=== PATIENT | male | born 1955 | race Caucasian/White ===

== ENCOUNTER 2018-12-23 13:44 | Observation (INO) ==
--- NOTE | 2018-12-23 14:20 | Emergency Department Note ---
Disposition Clinical Impression: Transient cerebral ischemia Qualifiers: Transient cerebral ischemia type: unspecified Qualified Code(s): G45.9 - Transient cerebral ischemic attack, unspecified Disposition: Admitted As Inpatient Condition: Fair Time of Disposition: 16:16 Neuro HPI - General Chief Complaint: ED Neuro Symptoms/Deficit Stated Complaint: Neuro symptoms Time Seen by Provider: 12/23/18 13:56 Source: patient Mode of arrival: ambulatory Limitations: no limitations Nursing Notes Reviewed: Yes Vital Signs Reviewed: Yes - History of Present Illness HPI Narrative: Patient presents to the emergency department with a chief complaint of multiple episodes of right-sided weakness. Onset a couple weeks ago. Patient has been having periods of time the last about an hour where he feels like his tongue is heavy and his right arm is weak. He has to raise on the left arm. He had one earlier today. Family states is also accompanied by "a lisp." At times he saying things that make sense. They state that he is back to normal at this time. He denies any history of stroke or TIA. . - Related Data Home Medications: Home Medications Medication Instructions Recorded Confirmed Cyclobenzaprine [Flexeril] 10 mg PO TID 12/06/15 06/11/18 Furosemide [Lasix] 80 mg PO DAILY 12/06/15 06/11/18 Pravastatin Sodium [Pravachol] 80 mg PO DAILY 12/06/15 06/11/18 diazePAM [Valium] 10 mg PO TID PRN 12/06/15 06/11/18 Omeprazole [PriLOSEC] 40 mg PO DAILY 04/08/16 06/11/18 Potassium Chloride [K-Tab ER] 20 meq PO BID 04/08/16 06/11/18 Previous Rx's Medication Instructions Recorded Docusate [Colace] 100 mg PO BID #60 capsule 04/10/16 OxyCODONE Immed Rel [Roxicodone 5 5 - 10 mg PO Q4HR PRN #60 tablet 07/16/16 MG] OxyCODONE/APAP 5/325 [Percocet 1 - 2 each PO Q4HR PRN #90 tablet 07/16/16 5/325 MG] Aspirin Enteric Coated [Aspirin EC] 325 mg PO BID tablet. 07/17/16 Losartan/HCTZ [Hyzaar 50-12.5 2 each PO DAILY tablet 07/18/16 Tablet] Cefepime HCl/Dextrose, Iso-Osm 2 gm IV Q12H 56 Days mls 07/21/16 [Cefepime 2 gm Injection] Albuterol Neb [Proventil Neb] 2.5 mg IH Q4HR #24 vial.neb 06/11/18 Albuterol Sulfate [Albuterol 2 puff IH QID #1 inhaler 06/11/18 Inhaler] Ipratropium Neb [Atrovent Neb] 0.5 mg IH Q4HR #24 vial.neb 06/11/18 Nebulizer [Aeroeclipse] 1 each MC Q4HR #1 each 06/11/18 Allergies/Adverse Reactions: Allergies Allergy/AdvReac Type Severity Reaction Status Date / Time Iodinated Contrast- Oral and Allergy Anaphylaxis Verified 06/11/18 11:40 IV Dye FRESH OYSTERS Allergy Anaphylaxis Uncoded 06/11/18 11:40 All systems ED: reviewed and negative except as stated. Constitutional: Denies: fever Cardiovascular: Denies: chest pain Respiratory: Denies: dyspnea Gastrointestinal: Denies: abdominal pain Genitourinary: Reports: dysuria. Denies: hematuria Neurological: Reports: weakness, numbness Past Medical History - Past Medical History Attestation: Yes The following information was validated with the patient. Source: patient Medical history: Reports: GERD, hyperlipidemia, hypertension Surgical history: Reports: appendectomy, knee replacement Psychiatric history: Reports: anxiety - Social History Smoking Status: Current every day smoker Smokeless Tobacco Status: No Alcohol use: Reports: unknown Drug use: Reports: unknown Physical Exam - General Limitations: no limitations General appearance: alert, in no apparent distress - Head Head exam: atraumatic, normocephalic - Eye Eye exam: Present: normal appearance, PERRL - ENT ENT exam: normal exam, normal oropharynx - Neck Neck exam: Present: normal inspection - Respiratory Respiratory exam: Present: normal lung sounds bilaterally. Absent: respiratory distress - Cardiovascular Cardiovascular exam: Present: regular rate, normal rhythm, normal heart sounds - Abdominal Exam Abdominal exam: Present: soft, Non-Tender - Neurological Exam Neurological exam: Present: alert - Psychiatric Psychiatric exam: Present: normal affect - Skin Skin exam: Present: warm, dry Course - Consultations Consultation #1: PAtient was accepted by Dr Hill. Vital Signs Temperature 98.7 F 12/23/18 13:52 Pulse Rate 112 12/23/18 13:52 Respiratory Rate 20 12/23/18 13:52 Blood Pressure 130/88 12/23/18 13:52 O2 Sat by Pulse Oximetry 97 12/23/18 13:52 Temperature 98.7 F 12/23/18 14:05 Pulse Rate 97 12/23/18 16:05 Respiratory Rate 18 12/23/18 16:05 Blood Pressure 117/101 12/23/18 16:05 O2 Sat by Pulse Oximetry 97 12/23/18 14:05 Oxygen Delivery Oxygen Delivery Room Air Neuro Symptoms/Deficit - Medical Records Medical records reviewed: Yes I reviewed the patient's medical records. The patient CT is unremarkable. He is having waxing and waning symptoms. His neurologic exam here is unremarkable. Question if he is having TIAs. He will be admitted for further neurologic workup. - Lab Data Result diagrams: 12/23/18 14:33 12/23/18 15:41 Lab Results 12/23/18 12/23/18 12/23/18 Range/Units 14:33 14:33 14:33 WBC 10.8 (4.3-11.1) K/mcL RBC 5.44 (4.19-5.50) M/mcL Hgb 13.5 (12.9-16.9) g/dL Hct 42.1 (37.5-50.1) % MCV 77.4 L (83.0-100.0) fL MCH 24.8 L (28.0-33.3) pg MCHC 32.1 (31.6-35.5) g/dL RDW 17.8 H (11.5-14.5) % Plt Count 267 (140-400) K/mcL MPV 10.4 (9.4-12.4) fL Sodium Cancelled Potassium Cancelled Chloride Cancelled Carbon Dioxide Cancelled BUN Cancelled Creatinine Cancelled Est GFR ( Amer) Cancelled Est GFR (Non-Af Amer) Cancelled BUN/Creatinine Ratio Cancelled Glucose Cancelled Calculated Osmolality Cancelled Calcium Cancelled Troponin I < 0.03 (< 0.04) ng/mL Specimen Rejected Hemolyzed 12/23/18 Range/Units 15:41 WBC (4.3-11.1) K/mcL RBC (4.19-5.50) M/mcL Hgb (12.9-16.9) g/dL Hct (37.5-50.1) % MCV (83.0-100.0) fL MCH (28.0-33.3) pg MCHC (31.6-35.5) g/dL RDW (11.5-14.5) % Plt Count (140-400) K/mcL MPV (9.4-12.4) fL Sodium 138 Potassium 3.7 Chloride 100 Carbon Dioxide 27 BUN 15 Creatinine 1.02 Est GFR ( Amer) > 60 Est GFR (Non-Af Amer) > 60 BUN/Creatinine Ratio 15 Glucose 102 Calculated Osmolality 287 Calcium 9.9 Troponin I (< 0.04) ng/mL Specimen Rejected - Radiology Data Radiology results reviewed: Yes I reviewed the patient's radiology results. Head CT 12/23/18 14:22 IMPRESSION: 1. No acute intracranial abnormality. 2. Mild cerebral atrophy. D/ / Abdifatah Rahman MD / Abdifatah Rahman MD Interpreting Provider: Abdifatah Rahman MD Chest X-Ray 12/23/18 14:23 IMPRESSION: No acute findings. D/ / Tommie Marquis MD / Tommie Marquis MD Interpreting Provider: Tommie Marquis MD - EKG Data EKG attestation: Yes I reviewed and interpreted this EKG. EKG results narrative: Sinus tachycardia 102. First-degree AV block. Bifascicular block. PVC. Normal ST segments. Inferior Q waves. Blocks new from prior EKG in 2018. NIH Stroke Scale - Level of Consciousness LOC: Alert - LOC Questions LOC Questions: Answers both correctly - LOC Commands LOC Commands: Performs both correctly - Best Gaze Best Gaze: Normal - Visual Visual: No visual loss - Facial Palsy Facial Palsy: Normal - Motor Arms Motor Arm-Left: No drift for 10 seconds Motor Arm-Right: No drift for 10 seconds - Motor Legs Motor Leg-Left: No drift for 5 seconds Motor Leg-Right: No drift for 5 seconds - Limb Ataxia Limb Ataxia: Absent of affected limb too weak to perform exam - Sensory Sensory: Normal - Best Language Best Language: No aphasia - Dysarthria Dysarthria: Normal - Extinction and Inattention Extinction and Inattention: Normal - NIHSS Total Score NIHSS Total Score: 0 TPA Checklist - Source Information Source: Patient - Eligibilty for IV tPA 2. Clinical diagnosis of ischemic stroke causing deficit: No - LKW: 3-4.5 hrs Add. Warnings/Precautions Patient/family understanding: The patient/family members have been counseled and understood the risk, benefit, and alternatives of treatment. Critical Care Time Critical Care Time: No
[2018-12-23 15:00] LABS: Hematocrit 42.1 % (37.5-50.1); Hemoglobin 13.5 g/dL (12.9-16.9); Mean Corpuscular HGB Conc 32.1 g/dL (31.6-35.5); Mean Corpuscular Hemoglobin 24.8 pg (28.0-33.3); Mean Corpuscular Volume 77.4 fL (83.0-100.0); Mean Platelet Volume 10.4 fL (9.4-12.4); Platelet Count 267 K/mcL (140-400); Red Blood Count 5.44 M/mcL (4.19-5.50); Red Cell Distribution Width 17.8 % (11.5-14.5)
[2018-12-23 16:28] LABS: BUN/Creatinine Ratio 15 (6-26); Blood Urea Nitrogen 15 mg/dL (8-23); Calcium 9.9 mg/dL (8.6-10.3); Carbon Dioxide 27 mEq/L (23-29); Chloride 100 mEq/L (98-107); Glucose 102 mg/dL (70-105); Osmolality,Calculated 287 (280-300); Potassium 3.7 mEq/L (3.5-5.1); Sodium 138 mEq/L (136-145); eGFR For Non-African Americans > 60 (> 60)
[2018-12-23] MEDS ORDERED: Acetaminophen 325 MG TABLET PO PRN (17:38)
[2018-12-23] MEDS ORDERED: Naloxone 0.4 MG/ML INJ IVP PRN (17:38)
--- NOTE | 2018-12-23 17:38 | Internal Med History&Physical ---
Date of Encounter: 12/23/18 Time of Encounter: 17:35 Internal Medicine - H&P: HPI Chief complaint: Weakness Admitted From: Emergency Dept Plans for Post Hospital Care: Home History of present illness: Mr. Weinberg is a 63 year old male with history of HTN, HLD, GERD who presents with right sided weakness for about 2 weeks or so. He is not able to raise his right arm above 90 degrees. Also associated dysarthria and talking with a lisp and feeling as if he is "numbed by the dentist on the right side". At times reports blurry vision. Symptoms have been on and off the last 2 weeks. Has been more frequent last 5 days. Can last to 1 hour at times. No lower extremity weakness but does have baseline lower extremity weakness on the right as he has had a complication after right knee replacement involving osteomyelitis and now he states along with family he takes 850 mg every other day of levaquin. In the ED BP was noted to have a diastolic of 101 and heart rate initially was 112. A CT head done was unremarkable. Labs unremarkable. EKG with no acute ischemic findings but showed sinus tachy. By the time I was evaluating the patient he had diastolic in the 70s and heart rate in the 90s. Denies any headache, dizziness, nausea, vomiting, chest pain, shortness breath, abdominal pain, diarrhea, constipation, dysuria, burning sensation with urination, lower extremity edema, rashes. Past Med Surg Social Fam HX - Past Medical History Medical history: GERD, hyperlipidemia, hypertension Additional medical history: anxiety. DREA. infected prosthetic knee joint. morbid obesity Psychiatric history: anxiety - Past Surgical History Surgical History: appendectomy, knee replacement Additional surgical history: multiple kidney stones. testicular torsion. bilteral CT. left shoulder scope. right TKR - Social History Smoking Status: Current every day smoker Smokeless Tobacco Status: No Alcohol use: unknown Drug use: unknown - Family History Father Living Status: Hx Family Cardiac Disorders: No Hx Family Respiratory Disorders: No Hx Family Cancer: No Hx Family GI Disorders: No Hx Family Endocrine Disorder: No Hx Family Neuromuscular Disorders: No Hx Family Neurologic Disorders: No Hx Family HEENT Disorders: No Hx Family Autoimmune Disorders: No Mother Living Status: Hx Family Cardiac Disorders: Yes Hx Family Respiratory Disorders: No Hx Family Cancer: No Hx Family GI Disorders: No Hx Family Endocrine Disorder: Yes Hx Family Neuromuscular Disorders: No Hx Family Neurologic Disorders: No Hx Family HEENT Disorders: No Hx Family Autoimmune Disorders: Yes (RA) Internal Medicine - H&P: Meds Cyclobenzaprine [Flexeril] 10 mg PO TID 12/06/15 [History] Furosemide [Lasix] 80 mg PO DAILY 12/06/15 [History] Pravastatin Sodium [Pravachol] 80 mg PO DAILY 12/06/15 [History] diazePAM [Valium] 10 mg PO TID PRN 12/06/15 [History] Omeprazole [PriLOSEC] 40 mg PO DAILY 04/08/16 [History] Potassium Chloride [K-Tab ER] 20 meq PO BID 04/08/16 [History] Docusate [Colace] 100 mg PO BID #60 capsule 04/10/16 [Rx] OxyCODONE Immed Rel [Roxicodone 5 MG] 5 - 10 mg PO Q4HR PRN #60 tablet 07/16/16 [Rx] OxyCODONE/APAP 5/325 [Percocet 5/325 MG] 1 - 2 each PO Q4HR PRN #90 tablet 07/16/16 [Rx] Aspirin Enteric Coated [Aspirin EC] 325 mg PO BID tablet. 07/17/16 [Rx] Losartan/HCTZ [Hyzaar 50-12.5 Tablet] 2 each PO DAILY tablet 07/18/16 [Rx] Cefepime HCl/Dextrose, Iso-Osm [Cefepime 2 gm Injection] 2 gm IV Q12H 56 Days mls 07/21/16 [Rx] Albuterol Neb [Proventil Neb] 2.5 mg IH Q4HR #24 vial.neb 06/11/18 [Rx] Albuterol Sulfate [Albuterol Inhaler] 2 puff IH QID #1 inhaler 06/11/18 [Rx] Ipratropium Neb [Atrovent Neb] 0.5 mg IH Q4HR #24 vial.neb 06/11/18 [Rx] Nebulizer [Aeroeclipse] 1 each MC Q4HR #1 each 06/11/18 [Rx] Allergy/AdvReac Type Severity Reaction Status Date / Time Iodinated Contrast- Oral and Allergy Anaphylaxis Verified 06/11/18 11:40 IV Dye FRESH OYSTERS Allergy Anaphylaxis Uncoded 06/11/18 11:40 All Systems PM: A 10-system review of systems was performed and is negative for pertinent findings except as documented above in the HPI. Review of systems: All systems reviewed are negative except for as mentioned above - Constitutional Vitals: Temp Pulse Resp BP Pulse Ox 98.7 F 97 18 117/101 97 12/23/18 14:05 12/23/18 16:05 12/23/18 16:05 12/23/18 16:05 12/23/18 14:05 Exam: GEN: NAD HEENT: AT, NC, No cyanosis, oral mucosa is moist, No JVD Lymphatics: No lymphadenoapthy Eyes: Extrocular muscles intact, anicteric CVS:RRR. S1, S2, No m/r/g RESP: CTAB ABD: Soft, NT, ND, +BS EXT: No edema, No rashes, 2+ DP NEURO: Unable to raise right arm above 90 degrees. Strength is about 4 out of 5 in the right lower extremity compared to the left which is 5 out of 5. CN II- XII intact, No other focal motor or sensory deficits Psych: Cooperative, Not anxious or depressed Internal Med - H&P Results - Labs CBC & Chem 7: 12/23/18 14:33 12/23/18 15:41 Labs: Short CBC 12/23/18 Range/Units 14:33 WBC 10.8 (4.3-11.1) K/mcL Hgb 13.5 (12.9-16.9) g/dL Hct 42.1 (37.5-50.1) % Plt Count 267 (140-400) K/mcL BMP 12/23/18 12/23/18 14:33 15:41 Sodium Cancelled 138 Potassium Cancelled 3.7 Chloride Cancelled 100 Carbon Dioxide Cancelled 27 BUN Cancelled 15 Creatinine Cancelled 1.02 Glucose Cancelled 102 Calcium Cancelled 9.9 Cardiac Enzymes 12/23/18 Range/Units 14:33 Troponin I < 0.03 (< 0.04) ng/mL - Impressions ITS Impressions Head CT 12/23/18 14:22 IMPRESSION: 1. No acute intracranial abnormality. 2. Mild cerebral atrophy. D/ / Abdifatah Rahman MD / Abdifatah Rahman MD Interpreting Provider: Abdifatah Rahman MD Chest X-Ray 12/23/18 14:23 IMPRESSION: No acute findings. D/ / Tommie Marquis MD / Tommie Marquis MD Interpreting Provider: Tommie Marquis MD - Assessment and plan (1) Weakness Current Visit: Yes Status: Acute Assessment and plan: This is associated with many other symptoms including dysarthria, right-sided facial numbness, blurry vision, inability to raise his right arm above his head. Patient is on 80 mg of daily aspirin. We will resume that. CT head un remarkable. We will get an MRI of the brain as well as MRA head and neck. Will consult neurology. Check hemoglobin A1c and lipid panel. Counseled on smoking. Neuro checks. Tele monitoring. Bedside swallow eval. (2) HTN (hypertension) Current Visit: No Status: Chronic Assessment and plan: Continue home antihypertensives Qualifiers: Hypertension type: essential hypertension Qualified Code(s): I10 - Essential (primary) hypertension (3) Dyslipidemia Current Visit: No Status: Chronic Assessment and plan: Continue statin therapy. (4) Infection of prosthetic right knee joint Current Visit: No Status: Acute Assessment and plan: This is not active. Seems from with the family still me that he is on suppressive therapy with Levaquin every other day at [address] Mujica. Qualifiers: Encounter type: initial encounter Qualified Code(s): T84.53XA - Infection and inflammatory reaction due to internal right knee prosthesis, initial encounter (5) GERD (gastroesophageal reflux disease) Current Visit: No Status: Chronic Assessment and plan: Continue home meds Qualifiers: Esophagitis presence: esophagitis presence not specified Qualified Code(s): K21.9 - Gastro-esophageal reflux disease without esophagitis (6) Morbid obesity Current Visit: No Status: Chronic Assessment and plan: Counseled on lifestyle modification. (7) Tobacco abuse Current Visit: No Status: Chronic Assessment and plan: Nicotine patch and counseled. (8) DVT prophylaxis Current Visit: Yes Status: Acute Assessment and plan: Heparin subcutaneous - Time Spent With Patient Total time spent is greater than 50% in coordination of care (as documented) at patient's floor/unit and/or counseling patient:
[2018-12-23] MEDS ORDERED: Gadolinium Contrast Agent (WT Based) IV PRN (17:39)
[2018-12-23] MEDS ORDERED: Nicotine 21 MG PATCH.TD24 TD SCH (18:00)
[2018-12-23] MEDS ORDERED: *HR* LORazepam 2 MG/ML VIAL IVP ONE (18:11)
[2018-12-23] MEDS ORDERED: Aspirin Enteric Coated 81 MG Tablet PO SCH (18:15)
[2018-12-23] MEDS ORDERED: *HR* Heparin 5,000 UNIT/ML VIAL SQ SCH (22:00)
[2018-12-23] MEDS ORDERED: Perflutren Lipid Microsphere 1.3 ML in 0.9 % Sodium Chloride 8.7 ML IVP ONE (22:14)
[2018-12-23] MEDS: Aspirin Enteric Coated 81 MG Tablet PO SCH (23:15)
[2018-12-23] MEDS: *HR* Heparin 5,000 UNIT/ML VIAL SQ SCH (23:16)
[2018-12-23] MEDS: Nicotine 21 MG PATCH.TD24 TD SCH (23:16)
[2018-12-24] MEDS ORDERED: *HR* OxyCODONE/APAP 5/325 TABLET PO ONE (00:53)
[2018-12-24 03:34] LABS: Basophils % 0.4 %; Eosinophils # 0.1 K/mcL (0.0-0.6); Eosinophils % 0.5 %; Hemoglobin 12.7 g/dL (12.9-16.9); Immature Granulocytes % 0.3 % (0-4); Lymphocytes # 3.2 K/mcL (0.6-4.6); Lymphocytes % 31.5 %; Mean Corpuscular HGB Conc 31.8 g/dL (31.6-35.5); Mean Corpuscular Hemoglobin 24.8 pg (28.0-33.3); Mean Corpuscular Volume 78.1 fL (83.0-100.0); Mean Platelet Volume 10.5 fL (9.4-12.4); Monocytes # 1.1 K/mcL (0.0-1.3); Monocytes % 10.8 %; Neutrophils # 5.7 K/mcL (1.6-8.9); Platelet Count 272 K/mcL (140-400); Red Blood Count 5.12 M/mcL (4.19-5.50); Red Cell Distribution Width 17.3 % (11.5-14.5); Segmented Neutrophils % 56.5 %
[2018-12-24 03:41] LABS: Prothrombin Time 11.7 Seconds (9.4-12.1)
[2018-12-24 03:59] LABS: BUN/Creatinine Ratio 14 (6-26); Blood Urea Nitrogen 14 mg/dL (8-23); Calcium 9.2 mg/dL (8.6-10.3); Carbon Dioxide 25 mEq/L (23-29); Chloride 104 mEq/L (98-107); Chol/HDL Ratio 3.9 (0-4.9); Cholesterol 130 mg/dL (< 200); Glucose 105 mg/dL (70-105); HDL Cholesterol 33 mg/dL (40-59); LDL Cholesterol,Calculated 52 mg/dL (0-99); Osmolality,Calculated 281 (280-300); Potassium 3.6 mEq/L (3.5-5.1); Sodium 135 mEq/L (136-145); Triglycerides 226 mg/dL (< 150); eGFR For Non-African Americans > 60 (> 60)
[2018-12-24] MEDS: *HR* Heparin 5,000 UNIT/ML VIAL SQ SCH (05:26)
--- NOTE | 2018-12-24 10:08 | Event Note ---
Date of Encounter: 12/24/18 Time of Encounter: 10:03 Patient was seen and examined. I agree with the progress as written by the resident physician. Admitted him yesterday for right upper extremity weakness, dysarthria which were all elevated yesterday but have not completely resolved this morning on my examination. The patient tells me this is normal for him over the last couple weeks her symptoms would flare up and go away. MRI brain, MRA head and neck, echocardiogram were all unremarkable. He is on the waiting neurology con sultation. GEN: NAD CVS: RRR. S1, S2, No m/r/g RESP: CTAB ABD: Soft, NT, ND, +BS EXT: No edema. 2+ DP. No rashes NEURO: Nonfocal Imaging studies have all been unremarkable for now. He definitely had dysarthria and right upper extremity weakness yesterday which has resolved completely today. Awaiting neurology's evaluation and possible discharge after Resume home meds On aspirin 81 mg daily here DVT prophylaxis
--- NOTE | 2018-12-24 10:12 | Electrocardiograph Report ---
[facility] Test Date: 2018-12-23 Pat Name: Scotty Weinberg Department: [id number] Room: 3B22 Gender: M Falafel Cart Cook: : 1955 Requested By: Lorri See Order Number: [id number] Reading MD: Angel Llanes Measurements Intervals Benson Rate: 102 P: -6 VA: 214 QRS: -5 QRSD: 113 T: -1 QT: 354 QTc: 462 Interpretive Statements Sinus tachycardia Ventricular premature complex Electronically Signed On 12-24-2018 10:10:00 EST by Angel Llanes
[2018-12-24 10:22] LABS: Estimated Average Glucose 126 mg/dl
[2018-12-24] MEDS ORDERED: Losartan/HCTZ 50-12.5 TABLET PO SCH (10:25)
--- NOTE | 2018-12-24 10:38 | Neurology - Consult Note ---
Date of Encounter: 12/24/18 Time of Encounter: 10:32 Assessment and Plan (1) Weakness of right upper extremity Current Visit: Yes Status: Acute This patient developed chronic intermittent right arm weakness and paresthesia that has been going on since last 4-5 weeks characterized by intermittent inability to raise his right arm above the shoulder with preservation of hand muscle strength, associated with numbness sensation to the same area. MRI of t he brain showed no evidence of intracranial abnormality therefore the symptoms are likely secondary to peripheral etiology. Neurological examination at present time showed slight limited range of motion involving the right shoulder. Patient does have history of diabetes and with evidence of absence of deep tendon reflexes indicating possible diabetic neuropathy. Differential consideration would include brachial plexopathy, intermittent diabetic mononeuropathy, or even orthopedic conditions involving his right shoulder. Current recommendation would be outpatient evaluation for possible orthopedic condition, cervical radiculopathy and peripheral neuropathy. Would like to see him in the neurology clinic 2-3 weeks after discharge and at that time likely an EMG/NCV study and MRI of the cervical spine will be ordered. Okay to discharge home from neurology perspective. Thank you very much for the consultation History of Present Illness Chief complaint: Right arm weakness and paresthesia HPI: Mr. Weinberg is a 63 year old male with past medical history significant for hypertension, diabetes, obstructive sleep apnea, morbid obesity, lumbar degenerative disc disease, chronic pain syndrome who presented with chief compla int of recurrent right arm weakness and paresthesia. Patient states that he has been experiencing intermittently right arm weakness and numbness since the last 4-5 weeks. The symptoms tend to occur few hours after waking up in the morning and he would suddenly unable to raise his right arm above the shoulder. At the same time, he would feel numb to his whole right arm. The weakness and numbness usually lasts into the evening hours and would spontaneously resolve. However, he denies significant neck pain or radiating pain involving his arms. He does have lumbar radiculopathy as a chronic condition and has been on chronic pain regimen for the back pain. Patient's initial CT of the head showed no acute intracranial abnormality. Subsequently, patient completed MRI of the brain which showed no acute intracranial abnormality but mild microvascular ischemic changes. Patient's CT angiogram of the neck and brain showed no significant major vessel stenosis. Echocardiogram showed normal left ventricular ejection fraction, no evidence of regional wall motion abnormality and no evidence of PFO. At the time of this interview, the patient's symptoms significantly improved. Patient is able to shrug his shoulders bilaterally but when he does that he still has this peculiar posture as if he is still weak. However, his Hand manager behavioral is fairly strong. Denies any significant sensory deficits at this time. Patient denies bowel and bladder dysfunction. Past Med Surg Social Fam HX - Past Medical History Medical history: GERD, hyperlipidemia, hypertension Additional medical history: anxiety. DREA. infected prosthetic knee joint. morbid obesity Psychiatric history: anxiety - Past Surgical History Surgical History: appendectomy, knee replacement Additional surgical history: multiple kidney stones. testicular torsion. bilteral CT. left shoulder scope. right TKR - Social History Smoking Status: Current every day smoker Packs per day: 1 Smokeless Tobacco Status: No Alcohol use: unknown Drug use: unknown - Family History Father Living Status: Hx Family Cardiac Disorders: No Hx Family Respiratory Disorders: No Hx Family Cancer: No Hx Family GI Disorders: No Hx Family Endocrine Disorder: No Hx Family Neuromuscular Disorders: No Hx Family Neurologic Disorders: No Hx Family HEENT Disorders: No Hx Family Autoimmune Disorders: No Mother Living Status: Hx Family Cardiac Disorders: Yes Hx Family Respiratory Disorders: No Hx Family Cancer: No Hx Family GI Disorders: No Hx Family Endocrine Disorder: Yes Hx Family Neuromuscular Disorders: No Hx Family Neurologic Disorders: No Hx Family HEENT Disorders: No Hx Family Autoimmune Disorders: Yes (RA) Medications and Allergies Cyclobenzaprine [Flexeril] 10 mg PO TID 12/06/15 [History] Pravastatin Sodium [Pravachol] 80 mg PO HS 12/06/15 [History] Potassium Chloride [K-Tab ER] 20 meq PO BID 04/08/16 [History] Aspirin [Lo-Dose Aspirin EC] 81 mg PO HS 12/24/18 [History] Docusate [Colace] 200 mg PO BID 12/24/18 [History] Furosemide [Lasix] 80 mg PO DAILY 12/24/18 [History] Losartan/HCTZ [Hyzaar 50-12.5 Tablet] 1 tab PO DAILY 12/24/18 [History] Omeprazole [PriLOSEC] 40 mg PO DAILY 12/24/18 [History] OxyCODONE/APAP 10/325 [Percocet 10/325 MG] 1 tab PO Q6HR PRN 12/24/18 [History] Allergy/AdvReac Type Severity Reaction Status Date / Time Iodinated Contrast- Oral and Allergy Anaphylaxis Verified 12/24/18 10:03 IV Dye FRESH OYSTERS Allergy Anaphylaxis Uncoded 12/24/18 10:03 All Systems: The remainder of the systems were reviewed and are negative Physical Examination - Vital Signs Vital Signs: Initial Vital Signs Temp Pulse Resp BP Pulse Ox 98.7 F 112 20 130/88 97 12/23/18 13:52 12/23/18 13:52 12/23/18 13:52 12/23/18 13:52 12/23/18 13:52 - Constitutional General appearance: comfortable - Neurologic Sensorimotor examination: intact Detailed motor examination: grossly full strength in all extremities Motor examination - right side: 5/5: deltoids, biceps, triceps, wrist flexion, wrist extension, manager behavioral, hip flexors, tibialis Anterior, quadriceps, toe extension (EHL), plantarflexion Motor examination - left side: 5/5: deltoids, biceps, triceps, wrist flexion, wrist extension, hip flexors, manager behavioral, quadriceps, tibialis Anterior, toe extension (EHL), plantarflexion Detailed sensory examination: intact Posture: other (none) Reflex and gait examination: other (Reflexes are reduced bilaterally both upper and lower extremities.) Reflexes: Biceps: 0, Triceps: 0, Brachioradialis: 0, Patella: 0, Achilles: 0 Mental Status Examination: awake, alert, oriented to person, oriented to place, oriented to time, follows commands appropriately, answers questions appropriately, no agnosia, no aphasia, no aproxia Cranial nerve examination: PERRL, EOMI, visual dias intact, corneal reflexes brisk symmetrically, sensory to face intact, mastication intact, no facial asymmetry is present, no dysarthria, hearing is intact symmetrically, soft palate elevates bilaterally upon phonation, gag reflex intact, flexes SCM and trapezius muscles symmetrically with full power, tongue protrudes midline, no atrophy or facial fasiculations present Cerebellar examination: no dysmetria, performs finger to nose and heel to good symmetrically without ataxia, no gait ataxia, no truncal ataxia, no difficulty with rapid alternating movements Results - Laboratory Findings CBC and BMP: 12/24/18 02:41 12/24/18 02:41 Abnormal lab findings: Abnormal lab results Hgb 12.7 g/dL (12.9-16.9) L 12/24/18 02:41 MCV 78.1 fL (83.0-100.0) L 12/24/18 02:41 MCH 24.8 pg (28.0-33.3) L 12/24/18 02:41 RDW 17.3 % (11.5-14.5) H 12/24/18 02:41 Sodium 135 mEq/L (136-145) L 12/24/18 02:41 Hemoglobin A1c 6.0 % (-5.6) H 12/24/18 02:41 Triglycerides 226 mg/dL (< 150) H 12/24/18 02:41 VLDL Cholesterol, Calc 45 mg/dL (< 31) H 12/24/18 02:41 HDL Cholesterol 33 mg/dL (40-59) L 12/24/18 02:41 - Diagnostic Findings Additional findings: Echo with Saline Contrast Name: Scotty Weinberg Date of Study: 12/23/2018 Date: 1955 Ht: 68.0 in Medical Record#: [id number] Age: 63 Wt: 284.0 lb Gender: Male BSA: 2.37 Order #: [id number] Location: [facility] Room #: 3B22 Reading Physician: Jose Rafael Patel MD Ordering Physician: Bladimir Trinh MD Steel Cutter: Serina Davis RDCS Indications: Stroke History Hypertension Hypercholesteremia History of Smoking Years 30 Packs 0.5 Contrast: Agitated saline 10 ml. Measurements: BP: 154/ 90 2D Normal Values RVIDd: 3.83 cm <2.7 cm IVSd: .97 cm 0.6 - 1.0 cm LVIDd: 5.01 cm 3.7 - 5.6 cm LVPWd: 1.19 cm 0.6 - 1.1 cm LVIDs: 3.52 cm 1.5 - 3.6 cm AO: 3.10 cm < 4.0 cm LA: 4.20 cm 2.0 - 4.0cm %FS: 29.70 cm >25 % LA volume: 46.4 Mitral Valve Pressure Time: 62.00 msec Valve Area: 3.55 cm2 Peak E: .55 m/sec Peak A: .70 m/sec E/A Ratio: 0.8 Peak E' Lat Adolfo: 7.29 cm/s Peak E' Med Adolfo: 5.77 cm/s E/E' Lat Ratio: 7.5 E/E' Med Ratio: 9.5 LVOT Peak Adolfo: 1.38 m/sec Mean Adolfo: .94 m/sec Peak Grad: 8.00 mmHg Mean Grad: 4.00 mmHg Tricuspid Valve TV Regurg Peak Grad: 9.00mmHg TV Regurg Peak Adolfo: 1.47m/sec Updated by Jose Rafael Patel MD on 12/24/2018 9:20:21 AM electronically signed on 12/24/2018 9:21:30 AM with status of Final Wall Motion Coe: 1=Normal, 2=Hypokinesis, 3=Akinesis, 4=Dyskinesis, 5=Aneurysmal, 6=Hyperkinetic, X=Not Visualized (Blank)=Missing [id number]^ProVation^FT^PDF EV/EV echo with saline Impressions: LVEF 60-65%. Mild left ventricular diastolic dysfunction. Normal right ventricular structure and function. No significant valvular dysfunction. No evidence of pulmonary hypertension. Nondiagnostic of PFO with agitated saline contrast. Left Ventricular Wall Motion: Rest Echo Findings All wall segments showed normal motion. Findings: Study Quality * Technically sub-optimal due to poor echocardiographic windows. ECG Findings * Sinus rhythm , 1st degree AVB. Left Ventricle * LVEF 60-65%. * Normal LV chamber size, wall thickness and systolic function. * Mild left ventricular diastolic dysfunction. Right Ventricle * Normal right ventricular structure and function. Left Atrium * Normal left atrial size. Right Atrium * Normal right atrial size. Interatrial Septum * Interatrial septum not well evaluated. * Nondiagnostic of PFO with agitated saline contrast. Aortic Valve * Aortic valve not well visualized. * No aortic stenosis. * No aortic regurgitation. Mitral Valve * Normal mitral valve structure. * No mitral stenosis. * No mitral regurgitation. Tricuspid Valve * Normal tricuspid valve structure. * No tricuspid stenosis. * Trace tricuspid regurgitation. * Unable to estimate RVSP due to lack of TR jet. * No evidence of pulmonary hypertension. * Estimated RA pressure is 3 mmHg. Pulmonic Valve * Pulmonic valve is not well visualized. * No pulmonic stenosis. * No pulmonic regurgitation. Aorta * Normally sized aortic root. Pericardium * The pericardium appears normal. IVC * Normal IVC dimensions and inspiratory collapse. EXAMINATION: MRA OF THE HEAD WITHOUT CONTRAST; MRA OF THE NECK WITH AND WITHOUT CONTRAST; MRI OF THE BRAIN WITHOUT CONTRAST 12/23/2018 7:46 pm; 12/23/2018 7:48 pm; 12/23/2018 7:49 pm TECHNIQUE: MRA of the head was performed utilizing [id number] imaging with MIP images. No intravenous contrast was administered.; Multiplanar multisequence MRA of the neck was performed with and without the administration of intravenous contrast. Stenosis of the internal carotid arteries measured using NASCET criteria.; Multiplanar multisequence MRI of the brain was performed without the administration of intravenous contrast. COMPARISON: None HISTORY: ORDERING SYSTEM PROVIDED HISTORY: weakness FINDINGS: MRI Brain: INTRACRANIAL STRUCTURES/VENTRICLES: There is mild parenchymal volume loss. There are a few scattered foci of T2/FLAIR hyperintensity in the periventricular and subcortical white matter, likely related to minimal chronic microvascular disease. There is no acute infarct. No mass effect or midline shift. No acute intracranial hemorrhage. There is no hydrocephalus. The sellar/suprasellar regions appear unremarkable. The normal signal voids within the major intracranial vessels appear maintained. ORBITS: The visualized portion of the orbits demonstrate no acute abnormality. SINUSES: There is scattered minimal mucosal thickening in the paranasal sinuses. The bilateral mastoid air cells are clear. BONES/SOFT TISSUES: The bone marrow signal intensity appears normal. The soft tissues demonstrate no acute abnormality. MRA HEAD: ANTERIOR CIRCULATION: The internal carotid arteries are normal in course and caliber without focal stenosis. The anterior cerebral and middle cerebral arteries demonstrate no focal stenosis. POSTERIOR CIRCULATION: The posterior cerebral arteries demonstrate no focal stenosis. The vertebral and basilar arteries appear unremarkable. No intracranial aneurysm. MRA neck: The visualized aortic arch is of normal configuration. There is no flow-limiting stenosis at the origins of the arch vessels. Common and internal carotid arteries: The bilateral common carotid arteries are within normal limits without flow limiting stenosis. The bilateral internal carotid arteries are within normal limits without flow limiting stenosis by NASCET criteria. There is no dissection or vascular injury. Vertebral arteries: The origin of right vertebral artery is not well visualized. The remainder of the bilateral vertebral arteries are within normal limits without focal stenosis or dissection. MR/MR head/brain wo con IMPRESSION: No acute intracranial abnormality. Mild parenchymal volume loss. Minimal chronic microvascular disease. Unremarkable MRA of the head. The origin of right vertebral artery is not well visualized. Otherwise, unremarkable MRA of the neck. D/ / Chpaito Rg MD / Chapito Rg MD Interpreting Provider: Chapito Rg MD Consult Discharge Plan - Plan Referrals: Odalis Bonilla MD [Primary Care Provider] -
--- NOTE | 2018-12-24 10:39 | Discharge Summary ---
<Edna Cartwrightra Worthington - Last Filed: 12/24/18 10:55> - NOTES TO OUTPATIENT PROVIDER Notes to Outpatient Provider: Admitted for weakness and concern for CVA with negative workup. Follow up with Neurology in 2-3 week outpatient. Follow up with PCP within 1 week. Orders not resulted at time of discharge: Pending orders 12/23/18 17:59 Bedside Swallowing Evaluation [EVAL] Routine Date of Encounter: 12/24/18 Time of Encounter: 10:36 - Discharge Diagnosis (1) Weakness of right upper extremity Priority: Primary Status: Acute (2) Dyslipidemia Priority: Secondary Status: Chronic (3) GERD (gastroesophageal reflux disease) Priority: Secondary Status: Chronic Qualifiers: Esophagitis presence: esophagitis presence not specified Qualified Code(s): K21.9 - Gastro-esophageal reflux disease without esophagitis (4) HTN (hypertension) Priority: Secondary Status: Chronic Qualifiers: Hypertension type: essential hypertension Qualified Code(s): I10 - Essential (primary) hypertension (5) Morbid obesity Priority: Secondary Status: Chronic (6) DREA (obstructive sleep apnea) Priority: Secondary Status: Chronic Hospital course: Mr. Weinberg is a 63 year old male with a history of hypertension, hyperlipidemia, GERD who presented to to the ER with right-sided right upper extremity weakness, dysarthria, and blurry vision over the last 2 weeks. In the ER patient was initially hypertensive and tachycardic. He was admitted for possible CVA. Patient denies headache, lightheadedness, dizziness, chest pain, shortness of breath, nausea, vomiting, abdominal pain, diarrhea, constipation, fevers or chills. Head CT was without acute abnormality. Chest x-ray with no acute f indings. Brain MRI showed no acute intracranial abnormality, mild parenchymal volume loss and minimal chronic microvascular disease. MRA of head and neck were both unremarkable. Echocardiogram showed EF 60-65% mild left ventricular diastolic dysfunction, normal RV structure and function, no valvular dysfunction or evidence of pulmonary hypertension, and no evidence of PFO. Neurology was consulted and recommended outpatient follow-up in 2-3 weeks for further evaluation. Vitals are stable and in safe for discharge. If symptoms become persistent, worsen, or new symptoms arise patient should seek emergency medical care. Discharge discussed with: patient - Time Spent with Patient Total time spent providing and/or coordinating discharge services: Greater than 30 minutes - Discharge Medications Prescriptions: Continue RX: Cyclobenzaprine [Flexeril] 10 mg PO TID RX: Pravastatin Sodium [Pravachol] 80 mg PO HS RX: Potassium Chloride [K-Tab ER] 20 meq PO BID RX: Aspirin [Lo-Dose Aspirin EC] 81 mg PO HS RX: Docusate [Colace] 200 mg PO BID RX: Furosemide [Lasix] 80 mg PO DAILY RX: Losartan/HCTZ [Hyzaar 50-12.5 Tablet] 1 tab PO DAILY RX: Omeprazole [PriLOSEC] 40 mg PO DAILY RX: OxyCODONE/APAP 10/325 [Percocet 10/325 MG] 1 tab PO Q6HR PRN PRN Reason: Pain Home Medications: RX: Cyclobenzaprine [Flexeril] 10 mg PO TID 12/06/15 [History] RX: Pravastatin Sodium [Pravachol] 80 mg PO HS 12/06/15 [History] RX: Potassium Chloride [K-Tab ER] 20 meq PO BID 04/08/16 [History] RX: Aspirin [Lo-Dose Aspirin EC] 81 mg PO HS 12/24/18 [History] RX: Docusate [Colace] 200 mg PO BID 12/24/18 [History] RX: Furosemide [Lasix] 80 mg PO DAILY 12/24/18 [History] RX: Losartan/HCTZ [Hyzaar 50-12.5 Tablet] 1 tab PO DAILY 12/24/18 [History] RX: Omeprazole [PriLOSEC] 40 mg PO DAILY 12/24/18 [History] RX: OxyCODONE/APAP 10/325 [Percocet 10/325 MG] 1 tab PO Q6HR PRN 12/24/18 [History] Allergies/Adverse Reactions: Allergy/AdvReac Type Severity Reaction Status Date / Time Iodinated Contrast- Oral and Allergy Anaphylaxis Verified 12/24/18 10:03 IV Dye FRESH OYSTERS Allergy Anaphylaxis Uncoded 12/24/18 10:03 Date of admission: 12/23/18 17:33 Primary care physician: Odalis Bonilla Consults: 12/23/18 18:10 Consult to Neurology [CONS] Routine Consulting Provider: [facility] Reason for Consult: TIA vs CVA. Constellation of neuro symptoms Call Completed: No Discharging clinician: Jahaira Cartwright Anticipated date of discharge: 12/24/18 - Constitutional Vitals: Temp Pulse Resp BP Pulse Ox 97.9 F 74 16 116/73 93 12/24/18 06:36 12/24/18 06:36 12/24/18 06:36 12/24/18 06:36 12/24/18 09:00 Exam: GEN: Sitting comfortably in chair, NAD, obese HEENT: AT, NC, No cyanosis, oral mucosa is moist, No JVD Lymphatics: No lymphadenoapthy Eyes: EOMI, anicteric, conjunctiva clear CVS: RRR. , Normal S1 and S2, no murmurs RESP: CTAB, no wheezing noted ABD: Soft, NT, ND, no hepatosplenomegaly EXT: No edema, No rashes NEURO: Unable to passively raise right arm above 90 degrees. Full ROM of the left upper extremity. Equal strength in bilateral upper extremities CN II-XII intact, No other focal motor or sensory deficits Psych: Speech clear, mood and affect appropriate - Patient Status Disposition: Home, Self-Care Condition: Good Overall status at discharge: patient is back to baseline - Discharge Instructions Instructions: Chronic Hypertension (DC) Follow Up With: Odalis Bonilla MD [Primary Care Provider] - (An appointment has been requested. The office will contact you at home with an appointment. ) Hugo Nix MD [Partnered Physician] - (An appointment has been requested. The office will contact you at home with an appointment. ) - Diet and Activity Activity: increase activity as tolerated Diet: low salt diet <Bladimir Trinh - Last Filed: 12/24/18 14:19> Orders not resulted at time of discharge: Pending orders 12/23/18 17:59 Bedside Swallowing Evaluation [EVAL] Routine Date of Encounter: 12/24/18 - Discharge Diagnosis (1) Weakness Status: Acute (2) HTN (hypertension) Status: Chronic Qualifiers: Hypertension type: essential hypertension Qualified Code(s): I10 - Essen tial (primary) hypertension (3) Dyslipidemia Status: Chronic (4) Infection of prosthetic right knee joint Status: Acute Qualifiers: Encounter type: initial encounter Qualified Code(s): T84.53XA - Infection and inflammatory reaction due to internal right knee prosthesis, initial encounter (5) GERD (gastroesophageal reflux disease) Status: Chronic Qualifiers: Esophagitis presence: esophagitis presence not specified Qualified Code(s): K21.9 - Gastro-esophageal reflux disease without esophagitis (6) Morbid obesity Status: Chronic (7) Tobacco abuse Status: Chronic (8) DVT prophylaxis Status: Acute Hospital course: Mr. Weinberg is a 63 year old male - Time Spent with Patient Total time spent providing and/or coordinating discharge services: Date of admission: 12/23/18 17:33 Primary care physician: Odalis Bonilla Consults: 12/23/18 18:10 Consult to Neurology [CONS] Routine Consulting Provider: [facility] Reason for Consult: TIA vs CVA. Constellation of neuro symptoms Call Completed: No - Constitutional Vitals: Temp Pulse Resp BP Pulse Ox 97.7 F 91 18 176/76 97 12/24/18 10:45 12/24/18 10:45 12/24/18 10:45 12/24/18 10:45 12/24/18 10:45 - Attending Attestation I examined this patient and my medical decision-making was reviewed with the Resident Physician. I agree with the documented discharge as described except to the extent set forth below. Admitted for CVA work up. MRI brain, MRA head/neck, echo all unremarkable. Neurology saw and signed off and will see him outpatient for possible EMG regarding right upper ext weakness. Symptoms been going on for 2 week or so. GEN: NAD CVS: RRR. S1, S2, No m/r/g RESP: CTAB ABD: Soft, NT, ND, +BS EXT: No edema. 2+ DP. No rashes NEURO: Nonfocal
[2018-12-24 10:46] VITALS: BP 176/76
[2018-12-24] MEDS: Aspirin Enteric Coated 81 MG Tablet PO SCH (10:52)
[2018-12-24] MEDS: Nicotine 21 MG PATCH.TD24 TD SCH (10:52)
[2018-12-25] MEDS ORDERED: Furosemide 40 MG TABLET PO SCH (09:00)
== END 2018-12-24 11:55 | disposition home or self-care (01) ==
LOC: EMEROOARM 13:44 → 3BNU 13:44 → SUATTDRO 17:33 → 3BNU 18:35
PROVIDERS: ADMIT Internal Medicine; ATTEND Internal Medicine